=== PATIENT | female | born 1960 | race Caucasian/White ===

== ENCOUNTER → 2016-08-12 | Outpatient (CLI) | payer OTHER ==
--- NOTE | 2016-08-12 15:26 | DX ---
PA and Lateral Chest August 12, 2016 Indication: Precordial chest pain. Comparison: Two-view chest dated October 08, 2008. Findings: Numerous suture lines throughout the right mid and right upper lung are indicative of inter demi thoracic surgery since 2008. Benign punctate calcified granuloma is present in the periphery of t he right upper lobe and in the right hilum. No pulmonary nodule, airspace consolidation, edema, or ef fusion has developed. Heart size is normal. Impression: 1. Clear lungs. No acute process. 2. Stigmata of right lung surgery.
== END ==
LOC: BMCIMAGING 14:16
PROVIDERS: ATTEND Internal Medicine
DX: R07.2 Precordial pain (principal); Z85.118 Personal history of other malignant neoplasm of bronchus and lung

== ENCOUNTER → 2016-11-11 | Outpatient (CLI) | payer OTHER | LOC: FIMAGING 08:39 | PROVIDERS: ATTEND Internal Medicine | DX: K21.9 Gastro-esophageal reflux disease without esophagitis (principal); R10.13 Epigastric pain; K57.10 Diverticulosis of small intestine without perforation or abscess without bleeding ==

== ENCOUNTER → 2017-09-05 | Outpatient (CLI) | payer OTHER | LOC: BMCIMAGING 08:40 | PROVIDERS: ATTEND Nurse Practitioner Family | DX: Z12.31 Encounter for screening mammogram for malignant neoplasm of breast (principal) ==

== ENCOUNTER → 2017-12-21 | Outpatient (CLI) | payer OTHER | LOC: FIMAGING 14:23 | PROVIDERS: ATTEND Internal Medicine | DX: R10.32 Left lower quadrant pain (principal) ==

== ENCOUNTER → 2018-12-19 | Outpatient (CLI) | payer OTHER | LOC: FIMAGING 10:31 | PROVIDERS: ATTEND Physician Assistant | DX: E04.1 Nontoxic single thyroid nodule (principal); N95.0 Postmenopausal bleeding; D25.1 Intramural leiomyoma of uterus; R93.89 Abnormal findings on diagnostic imaging of other specified body structures ==